=== PATIENT | male | born 1950 | race African-American/Black ===

== ENCOUNTER 2017-06-08 14:35 | Emergency (ER) | payer MEDICARE, MEDICAID ==
[~2017-06-08] VITALS: Ht 172.7 cm; Wt 65.0 kg
[2017-06-08 15:59] VITALS: BP 103/74
[2017-06-08] MEDS ORDERED: HYDROCODONE/ACETAMINOPHEN 5/325MG TABLET PO ONE (16:00)
== END 2017-06-08 17:24 | disposition home or self-care (01) ==
LOC: ER 14:49
DX: M54.5 Low back pain (principal); R07.81 Pleurodynia; M54.2 Cervicalgia; F17.200 Nicotine dependence, unspecified, uncomplicated; V43.52XA Car driver injured in collision with other type car in traffic accident, initial encounter; Y93.89 Activity, other specified; Y99.8 Other external cause status; Y92.410 Unspecified street and highway as the place of occurrence of the external cause; Z88.8 Allergy status to other drugs, medicaments and biological substances
CPT/HCPCS: 70450; 71101; 72100; 72125; 99284